=== PATIENT | female | born 1960 | race Asian ===

== ENCOUNTER 2017-01-05 13:02 | Outpatient (CLI) | payer OTHER | END 2017-01-05 14:30 | disposition home or self-care (01) | LOC: MAMMO 13:02 | DX: Z12.31 Encounter for screening mammogram for malignant neoplasm of breast (principal) | CPT/HCPCS: G0202-TC ==

== ENCOUNTER 2017-02-08 08:46 | Outpatient (CLI) | payer OTHER | END 2017-02-08 19:05 | disposition home or self-care (01) | LOC: US 08:46 | DX: R92.8 Other abnormal and inconclusive findings on diagnostic imaging of breast (principal) ==

== ENCOUNTER 2017-02-14 07:46 | Day surgery (SDC) | payer OTHER ==
[2017-02-08 10:25] LABS: PLATELET COUNT 339 K/uL (152-353)
[2017-02-08 10:37] LABS: POTASSIUM 2.6 mmol/L (3.6-5.2)
[~2017-02-14] VITALS: Ht 167.6 cm; Wt 95.3 kg
== END 2017-02-14 15:45 | disposition home or self-care (01) ==
LOC: OR 07:46
PROVIDERS: Student in an Organized Health Care Education/Training Program
PROC: 0DBH8ZZ Excision of Cecum, Via Natural or Artificial Opening Endoscopic (ICD-10-PCS; principal; 2017-02-14)
PROC: 0DBN8ZZ Excision of Sigmoid Colon, Via Natural or Artificial Opening Endoscopic (ICD-10-PCS; 2017-02-14)
DX: K63.5 Polyp of colon (principal); D12.5 Benign neoplasm of sigmoid colon; K57.30 Diverticulosis of large intestine without perforation or abscess without bleeding; Z86.010 Personal history of colon polyps; R10.13 Epigastric pain; Z12.11 Encounter for screening for malignant neoplasm of colon
CPT/HCPCS: 36415; 80053; 84132; 85027; J2001; J2250; J2704; J3010; J3480; J3490

== ENCOUNTER 2018-03-20 08:42 | Outpatient (CLI) | payer OTHER | END 2018-03-20 22:14 | disposition home or self-care (01) | LOC: MAMMO 08:42 | DX: Z12.31 Encounter for screening mammogram for malignant neoplasm of breast (principal) ==

== ENCOUNTER 2018-05-10 20:14 | Emergency (ER) | payer OTHER ==
[~2018-05-10] VITALS: Ht 167.6 cm; Wt 97.5 kg
[2018-05-10 22:10] LABS: PLATELET COUNT 311 K/uL (152-353)
[2018-05-10 22:18] LABS: POTASSIUM 2.7 mmol/L (3.6-5.2)
[2018-05-10 23:01] VITALS: BP 142/95; TEMP 97.3
== END 2018-05-10 23:02 | disposition home or self-care (01) ==
LOC: ED 20:14
PROVIDERS: Family Medicine
DX: M10.9 Gout, unspecified (principal)
CPT/HCPCS: 36415; 80053; 84550; 85027; 96372; 99283; J1885

== ENCOUNTER 2018-07-18 10:09 | Outpatient (CLI) | payer OTHER ==
[2018-07-18 10:57] LABS: POTASSIUM 3.2 mmol/L (3.6-5.2)
== END 2018-07-18 19:29 | disposition home or self-care (01) ==
LOC: LABW 10:09
PROVIDERS: Nurse Practitioner
DX: E87.6 Hypokalemia (principal); M25.511 Pain in right shoulder
CPT/HCPCS: 36415; 80048

== ENCOUNTER 2018-09-08 20:57 | Emergency (ER) | payer OTHER ==
[~2018-09-08] VITALS: Ht 165.1 cm; Wt 91.2 kg
[2018-09-08 22:47] LABS: PLATELET COUNT 388 K/uL (152-353)
[2018-09-08 22:57] LABS: POTASSIUM 2.8 mmol/L (3.6-5.2)
[2018-09-09 00:04] VITALS: BP 134/83; TEMP 98.5
== END 2018-09-09 00:04 | disposition home or self-care (01) ==
LOC: ED 20:57
PROVIDERS: Emergency Medicine
DX: A08.4 Viral intestinal infection, unspecified (principal); E86.0 Dehydration
CPT/HCPCS: 36415; 80053; 81000; 82550; 82553; 84484; 85027; 87502; 87651; 93005; 99283

== ENCOUNTER 2018-09-12 11:42 | Outpatient (CLI) | payer OTHER | END 2018-09-12 23:17 | disposition home or self-care (01) | LOC: LABW 11:42 | DX: R74.8 Abnormal levels of other serum enzymes (principal); E87.6 Hypokalemia; R94.5 Abnormal results of liver function studies | CPT/HCPCS: 36415; 80074; 84132 ==

== ENCOUNTER 2018-09-26 09:27 | Outpatient (CLI) | payer OTHER | END 2018-09-26 19:11 | disposition home or self-care (01) | LOC: US 09:27 | DX: R74.8 Abnormal levels of other serum enzymes (principal) ==

== ENCOUNTER 2018-10-01 05:17 | Emergency (ER) | payer OTHER ==
[~2018-10-01] VITALS: Ht 165.1 cm; Wt 91.2 kg
[2018-10-01 05:39] VITALS: BP 123/86; TEMP 98.3
[2018-10-01 06:19] LABS: PLATELET COUNT 284 K/uL (152-353)
[2018-10-01 06:26] LABS: POTASSIUM 2.9 mmol/L (3.6-5.2)
== END 2018-10-01 07:05 | disposition home or self-care (01) ==
LOC: ED 05:17
PROVIDERS: Family Medicine
DX: K29.60 Other gastritis without bleeding (principal); E87.6 Hypokalemia; R74.8 Abnormal levels of other serum enzymes
CPT/HCPCS: 80053; 81000; 82150; 83690; 85027; 99283

== ENCOUNTER 2020-01-14 13:45 | Outpatient (CLI) | payer OTHER | END 2020-01-14 23:57 | disposition home or self-care (01) | LOC: RAD 13:45 | DX: K75.4 Autoimmune hepatitis (principal); M06.09 Rheumatoid arthritis without rheumatoid factor, multiple sites; M25.511 Pain in right shoulder; M47.812 Spondylosis without myelopathy or radiculopathy, cervical region; M47.896 Other spondylosis, lumbar region; M81.0 Age-related osteoporosis without current pathological fracture ==

== ENCOUNTER 2020-09-28 13:29 | Outpatient (CLI) | payer OTHER ==
[2020-09-28 13:47] LABS: PLATELET COUNT 302 K/uL (152-353)
[2020-09-28 13:59] LABS: POTASSIUM 2.9 mmol/L (3.6-5.2)
== END 2020-09-28 19:56 | disposition home or self-care (01) ==
LOC: LABW 13:29
PROVIDERS: ATTEND Internal Medicine Gastroenterology
DX: K75.4 Autoimmune hepatitis (principal)
CPT/HCPCS: 36415; 80053; 85027; 85610

== ENCOUNTER 2020-11-26 10:43 | Outpatient (CLI) | payer OTHER | END 2020-11-26 19:09 | disposition home or self-care (01) | LOC: MAMMO 10:43 | PROVIDERS: ATTEND Nurse Practitioner Family | DX: Z12.31 Encounter for screening mammogram for malignant neoplasm of breast (principal) ==

== ENCOUNTER 2021-02-18 11:27 | Outpatient (CLI) | payer OTHER | END 2021-02-18 19:32 | disposition home or self-care (01) | LOC: RAD 11:27 | PROVIDERS: ATTEND Nurse Practitioner Family | DX: E55.9 Vitamin D deficiency, unspecified (principal); M06.09 Rheumatoid arthritis without rheumatoid factor, multiple sites; Z79.52 Long term (current) use of systemic steroids; Z79.899 Other long term (current) drug therapy ==

== ENCOUNTER 2021-04-15 09:04 | Outpatient (CLI) | payer OTHER | END 2021-04-15 18:57 | disposition home or self-care (01) | LOC: US 09:04 | PROVIDERS: ATTEND Internal Medicine Gastroenterology | DX: R14.0 Abdominal distension (gaseous) (principal) ==

== ENCOUNTER 2022-01-03 09:01 | Outpatient (CLI) | payer OTHER | END 2022-01-03 18:48 | disposition home or self-care (01) | LOC: RAD 09:01 | PROVIDERS: ATTEND Nurse Practitioner Family | DX: M06.09 Rheumatoid arthritis without rheumatoid factor, multiple sites (principal); M47.812 Spondylosis without myelopathy or radiculopathy, cervical region; M47.896 Other spondylosis, lumbar region ==

== ENCOUNTER 2022-06-13 10:02 | Outpatient (CLI) | payer OTHER | END 2022-06-13 19:03 | disposition home or self-care (01) | LOC: RAD 10:02 → MRI 10:02 | PROVIDERS: ATTEND Physician Assistant | DX: E53.8 Deficiency of other specified B group vitamins (principal); E55.9 Vitamin D deficiency, unspecified; E56.8 Deficiency of other vitamins; K75.4 Autoimmune hepatitis; M06.09 Rheumatoid arthritis without rheumatoid factor, multiple sites; M54.12 Radiculopathy, cervical region; M54.17 Radiculopathy, lumbosacral region ==